=== PATIENT | female | born 1960 | race Caucasian/White ===

== ENCOUNTER 2016-06-14 18:34 | Emergency (ER) | payer MEDICARE ==
[~2016-06-14] VITALS: Ht 162.6 cm; Wt 115.0 kg
[~2016-06-14 18:34] MED LIST: ALAV10TA PO; ASPI81TA21 PO; BACT2CRE TOP; BENT20TA PO; CITA20 PO; COLE1TAB2 PO; DICL50 PO; ERGO50000 PO; HYDR-2768 PO; JANU50TA PO; LISI-363 PO; MAGN400T PO; OMEP20TA PO; PERM5CRE TOP; PRAV20TA PO; PROB1TAB PO; RANO500 PO; SERO50TA PO; TIZA4 PO
[2016-06-14 18:38] VITALS: BP 127/90; PULSE 99; RESP 20; TEMP 97.7; O2SAT 94
--- NOTE | 2016-06-14 20:40 | PD ---
HPI Chief Complaint: Injury Time Seen by Provider: 20:35 Travel History International Travel<30 days: No Contact w/Intl Traveler<30days: No Traveled to known affect area: No History of Present Illness HPI Patient comes in complaining of productive cough ongoing for a week. Patient using [id number] cold and flu medication for symptomatic relief. Patient denies any fevers, chest pain, shortness breath, nausea, vomiting, headache, numbness or tingling anywhere, loss or change in bowel or bladder, or being around anyone else with similar. Patient states she's been coughing up greenish phlegm and is a reformed smoker of 9 years. Patient also complaining of right knee pain that began last night. Patient states that from time to time she feels though her right knee goes out of place on her. Patient states she awoke last night feeling as though it popped out of place and has not popped back and yet. Pain is throbbing aching like in nature without radiation. Pain is worse with walking and palpation. Patient denies ever being evaluated for this previously. Denies doing anything for this prior to coming to the emergency department. PFSH Past Medical History Cardiovascular Problems: Yes Social History Alcohol Use: No Tobacco Use: No Substance Use: No Allergies-Medications (Allergen,Severity, Reaction): Coded Allergies: Sulfa (Verified Allergy, Unknown, 06/14/16) Reported Meds & Prescriptions Reported Meds & Active Scripts Active Naprosyn (Naproxen) 500 Mg Tab 500 Mg PO Q12HR PRN Zithromax Z-Nelson (Azithromycin) 250 Mg Dspk 250 Mg PO DIRECTED 500 MG (2 tabs) day 1, then 1 tab days 2-5. Ventolin Hfa 18 GM Inh (Albuterol Sulfate) 90 Mcg/Act Aer 2 Puff INH Q4H PRN Elimite (Permethrin) 5 % Cr 60 Gm TOP DIRECTED PATIENT INSTRUCTIONS: THOROUGHLY MASSAGE ELIMITE (PERMETHRIN) 5% CREAM INTO THE SKIN FROM HEAD TO TOE COVERING ALL EXTERNAL BODY PARTS. THE CREAM SHOULD BE REMOVED BY WASHING (SHOWER OR BATH) 8 TO 14 HOURS AFTER APPLICATION. PATIENTS MAY EXPERIENCE ITCHING AFTER TREATMENT AND IS RARELY A SIGN OF TREATMENT FAILURE. Bactroban 2% Cream (30 gm) (Mupirocin 2% Cream (30 gm)) 2 % Cre 2 % TOP Q12 APPLY TO Reported Januvia (Sitagliptin Phosphate) 50 Mg Tab 50 Mg PO DAILY Vitamin D / Drisdol 50,000 Units (Ergocalciferol) 50,000 Units Cap 1 Cap PO Q7D Voltaren (Diclofenac Sodium) 50 Mg Tabec 50 Mg PO BID Mag-Ox 400 (Magnesium Oxide) 400 Mg Tab 800 Mg PO DAILY Aspir-Low (Aspirin) 81 Mg Tab 81 Mg PO DAILY Alavert (Loratadine) 10 Mg Tab 10 Mg PO DAILY Celexa 20 Mg Tab (Citalopram Hydrobromide) 20 Mg Tab 20 Mg PO DAILY Ranexa 500 mg (Ranolazine) 500 Mg Tab 500 Mg PO DAILY Probiotic (Probiotic Product) 1 Tab Tab 1 Tab PO DAILY Colestipol Hcl 1 Gm Tab 1 Gm PO BID Omeprazole 20 mg (Omeprazole) 20 Mg Tab 20 Mg PO DAILY Bentyl (Dicyclomine HCl) 20 Mg Tab 20 Mg PO DAILY Pravachol 20 Mg Tab 1 Tab PO HS Seroquel 50 mg (Quetiapine Fumarate) 50 Mg Tab 50 Mg PO HS Zanaflex 4 mg (Tizanidine HCl) 4 Mg Tab 1 Tab PO HS Hctz (Hydrochlorothiazide) 25 Mg Tab 25 Mg PO DAILY Lisinopril 20 mg (Lisinopril) 20 Mg Tab 20 Mg PO DAILY Review of Systems Except as stated in HPI: all other systems reviewed are Neg Physical Exam Narrative GENERAL: Well-developed, overly nourished, in no acute distress, and non-ill appearing. SKIN: Warm and dry. HEAD: Atraumatic. Normocephalic. EYES: Pupils equal and round. EOMI. No scleral icterus. No injection or drainage. ENT: No nasal bleeding or discharge. Mucous membranes pink and moist. Tympanic membranes are pearly mcintyre bilaterally. Posterior pharynx nonerythematous without exudate. Uvula is midline. Patient reports tenderness to facial sinuses to palpation. NECK: Trachea midline. No cervical lymphadenopathy. Supple. No nuclear rigidity. CARDIOVASCULAR: Regular rate and rhythm. No murmur appreciated. Dorsal pulses 2+, intact, and equal bilaterally. Capillary refill less than 2 seconds. RESPIRATORY: No accessory muscle use. No respiratory distress. Clear to auscultation. Breath sounds equal bilaterally. Hacking cough noted on exam. MUSCULOSKELETAL: No obvious deformities. No clubbing. No cyanosis. No edema. Full range of motion. Knee: Negative patellar apprehension, varus and valgus maneuvers, anterior draw test, and Davi test. Pulses equal BL distal to injury. Capillary refill less than 2 seconds distal to injury and equal BL. FROM distal to injury and equal BL. Strength distal to injury equal BL. NV intact distal to injury. Dorsal pulses equal BL. Patient reports tenderness to palpation over anterior aspect of right knee medially that is worse with passive flexion. NEUROLOGICAL: Awake and alert. No obvious cranial nerve deficits. Motor grossly within normal limits. Normal speech. PSYCHIATRIC: Appropriate mood and affect; insight and judgment normal. Data Data Last Documented VS Vital Signs Date Time Temp Pulse Resp B/P Pulse Ox O2 Delivery O2 Flow Rate FiO2 06/14/16 18:38 97.7 99 20 127/90 94 Room Air Orders Chest, Single Ap (06/14/16 ) Knee, Complete (4vws) (06/14/16 ) Splint Or Brace Apply/Monitor (06/14/16 21:21) Immobilizer Knee 20 Inch (06/14/16 ) MDM Medical Decision Making Medical Screen Exam Complete: Yes Emergency Medical Condition: Yes Differential Diagnosis Pneumonia, bronchitis, COPD exacerbation, upper respiratory infection, sinusitis , fracture, arthritis, sprain, other Narrative Course Patients symptom complex is consistent with bronchitis. The patient is non-ill appearing and is in no respiratory distress and comfortable. The patient moves air well and oxygen saturations are normal. Chest x-ray revealed no evidence of obvious consolidation of infiltrate. There is no clinical evidence to suggest pneumonia at this time. Plan of care and management were discussed with the patient who agreed with plan. The patient was instructed to follow up with their physician and instructed to return if worsens, progressively worsening shortness of breath or difficulty breathing, persistent fever, chest pains or discomfort, inability to keep medication or fluids down with or without vomiting , or as needed. There is no clinical evidence to suspect bony injury by exam. Radiographic examination revealed no fracture seen at this time. No obvious ligamental injury or obvious internal derangement is noted at this time. The anterior, posterior, lateral and medial collateral ligaments are intact and symmetrical. The distal extremity appears neurovascularly intact, without evidence of neurovascular injury nor compartment syndrome. Tendon exam also was intact. The effected limb was immobilized. The patient was discharged on pain medication along with sprain and splint care instructions and given warnings for vascular compromise. The patient is to follow up with Orthopedics. The patient agrees with plan. Patient in no obvious distress upon re-evaluation. All pertinent Radiology result(s) discussed with patient. Patient was asked if they wanted to speak to my attending, which the patient did not wish to do at this time. Any questions/ concerns in reference to patient diagnosis/condition discussed and clarified prior to patient's discharge. Reinforced sheer importance of close follow up with patient's primary physician or primary care clinic and/or orthopedics. Instructed patient to return to ED immediately, if symptoms return/worsen. Pt showed understanding of above instructions. Further instructions and recommendations were detailed in discharge paperwork. Pt ambulated without difficulty out of ED at discharge with knee immobilizer. Diagnosis Primary Impression: Osteoarthritis of right knee Qualified Code: M17.11 - Osteoarthritis of right knee, unspecified osteoarthritis type Additional Impressions: Effusion of right knee joint Bronchitis Referrals: Keegan Larsen MD Patient Instructions: Acute Bronchitis (ED), Arthritis (ED), General Instructions, Knee Immobilizer (DC), Knee Pain (ED) Additional Instructions: Follow-up with your primary care physician and/or orthopedics in 2-3 days for reevaluation. Take all medication as prescribed. Return to the emergency department if symptoms get worse. Med/Other Pt SpecificInfo: Prescription(s) given Scripts Naproxen (Naprosyn)500 Mg [id number] Mg PO Q12HR PRN (PAIN SCALE 1 TO 10) #14 TAB Ref 0 Prov:Sriram Shi MD 06/14/16 Azithromycin (Zithromax Z-Nelson)250 Mg [id number] Mg PO DIRECTED #1 DSPK Ref 0 500 MG (2 tabs) day 1, then 1 tab days 2-5. Prov:Sriram Shi MD 06/14/16 Albuterol 18 GM Inh (Ventolin Hfa 18 GM Inh)90 Mcg/Act Aer2 Puff INH Q4H PRN ( COUGH) #1 INHALER Ref 0 Prov:Sriram Shi MD 06/14/16 Disposition: 01 DISCHARGE HOME Condition: Stable Chapo Petersen Jun 14, 2016 20:40
--- NOTE | 2016-06-14 21:17 | RADRPT ---
EXAM DATE/TIME: 06/14/2016 20:59 [facility] COMPARISON: No previous studies available for comparison. INDICATIONS : Shortness of breath and cough. MEDICAL HISTORY : None. SURGICAL HISTORY : None. ENCOUNTER: Initial ACUITY: 1 day PAIN SCORE: 0/10 LOCATION: Bilateral chest FINDINGS: A single view of the chest demonstrates the lungs to be symmetrically aerated without evidence of mas s, infiltrate or effusion. The cardiomediastinal contours are unremarkable. Osseous structures are i ntact. CONCLUSION: 1. No active disease. Martin Quintana MD on June 14, 2016 at 21:15 Board Certified Radiologist. This report was verified electronically.
--- NOTE | 2016-06-14 21:19 | RADRPT ---
EXAM DATE/TIME: 06/14/2016 21:02 [facility] COMPARISON: No previous studies available for comparison. INDICATIONS : Pain without trauma. MEDICAL HISTORY : None. SURGICAL HISTORY : None. ENCOUNTER: Initial ACUITY: 1 day PAIN SCORE: 4/10 LOCATION: Right anterior knee. FINDINGS: Four view examination of the right knee demonstrates no evidence of fracture or dislocation. Bony mi neralization is normal. Moderate osteoarthritis present especially at the lateral joint compartment w ith small joint effusion. CONCLUSION: 1. Moderate osteoarthritis of the right knee with small joint effusion. Martin Quintana MD on June 14, 2016 at 21:16 Board Certified Radiologist. This report was verified electronically.
[2016-06-14] MEDS ORDERED: ZITHTAB PO (21:34)
[2016-06-14] MEDS ORDERED: VENTAER INH (21:34)
[2016-06-14] MEDS ORDERED: NAPR500 PO (21:34)
== END 2016-06-14 22:26 | disposition home or self-care (01) ==
LOC: NEPB 18:34
DX: M17.11 Unilateral primary osteoarthritis, right knee (principal); M25.461 Effusion, right knee; J40 Bronchitis, not specified as acute or chronic
CPT/HCPCS: 71010; 73564; 99283; L1830